=== PATIENT | female | born 1970 | race Two or more races ===

== ENCOUNTER → 2019-08-20 | Emergency (ER) | payer OTHER ==
[~2019-08-20] VITALS: Ht 139.7 cm; Wt 79.8 kg
[~2019-08-20] MED LIST: CLONAZEPAM0.5 MG
== END | disposition home or self-care (01) ==
LOC: ER 18:48
DX: S93.492A Sprain of other ligament of left ankle, initial encounter (principal); M79.605 Pain in left leg; W01.0XXA Fall on same level from slipping, tripping and stumbling without subsequent striking against object, initial encounter; Y93.89 Activity, other specified; Y92.89 Other specified places as the place of occurrence of the external cause; Y99.8 Other external cause status